=== PATIENT | female | born 1970 | race Caucasian/White ===

== ENCOUNTER 2020-12-29 16:00 | Outpatient (RCR) | payer OTHER, SELFPAY ==
--- NOTE | 2020-12-14 10:03 | HP.PTEVAL_ITS ---
Patient's Visit Information AURA SMITH is a 50 year old F referred to Physical Therapy by AXEL HOYOS with a diagnosis of Right Insertional Achilles Tendonitis, Tear Right, Bursitis. Date of Evaluation: 12/14/20 Physical Therapist: Lou Gordillo DPT - Visit Plan Frequency: 2x /Week Duration: 4 Weeks Plan: Ultrasound- Gastroc/Solus Flexibility and Strength Caution of partial tear. IE HEP Given: Ankle ROM exercises, Gastroc Stretching (seated and standing) - Subjective Right Foot Pain-In August she was walking and then started to have pain. Thought it was her shoes- she had a purple line along the back of it. Solutions Analyst said bursitis and gave her a steroid pill that did not help. She has a lump back there which is swollen. She had and MRI which showed a tear towards the bottom of the tendon. Lots of swelling in the foot/ankle. Does ice a couple of times a week. Also does heat and stretching in the shower. Has been doing stretching exercises in the foot but she does have limited ROM. Most of the pain is in the heel and goes up the back and into gastroc into the knee. Worst: 10 Agg: everything. If in one position to long she has throbbing and burning pain. She can get 100 yards of walking then it becomes very painful. Best: 10 Eases: she tries but nothing really works- she uses lidocain to sleep. Sleep: wakes her up but she can go back to sleep after using Lidocain (roll on/spray). Occupation: production truck driver- currently working- getting in/out of the truck is hard. In/Out of the truck 10-15x-no climbing in trailers at this point. Does have neuroapthy in her feet- does have slight burning and tingling in the feet. Shoes: normally wears sketchers or slide ons- no orthotics in shoes- no lift in her shoes. PMHx: HTN, Fibro, She has had a spinal fusion Jul 2017. DM. Meds: Gabapentin, bidermosise, metformin, hydrocholorthiazide, lisinopril, amotryptolene, potassium, prilosec, asprin, collosterine. - Objective Posture: FH, RS, increased kyphosis- can correct but does not maintain- pt is overweight. Gait: antalgic- decreased stance on right LE with poor heel/toe pattern and slow yovani. Observation: lump on distal achilles. SLS: 5 sec then LOB reports pain. HR/TR: able with significant pain. Sit to Stand: pt uses arms to lift from chair. Stairs: asc/desc 8 recip with 2 HR with significant pull from HR. Palpation: tender along gastroc, achilles to the distal insertion is VERY tender, in the heel and plantar fascia- no pain with mobilization of the mid foot. ROM: DF: 10 degrees from neutral PF: 50 degrees, Inv: 30 degrees Ever: 10 degrees pain in all directions. Flex: Gastroc: severe, Solues: severe. Strength: Hip/Knee: 5/5, Ankle: 4/5 in available range with pain. Girth: Mets: 28 cm, Figure 8: 55, cm, Malls: 28cm - Goals Goal 1:: Patient will be I with HEP and progression Goal Time Frame: 4-6 Weeks Goal 2:: Patient will SLS for 15 sec without LOB Goal Time Frame: 4-6 Weeks Goal 3:: Patient will report less than 3/10 pain for 1 week Goal Time Frame: 4-6 Weeks Goal 4:: Patient will demo neutral DF in the Right ankle Goal Time Frame: 4-6 Weeks - Rehabilitation Potential Physical Therapy Diagnosis: Patient presents with hypomobility- she has decreased ROM, strength, flex and muscular endurance leading to abnormal gait pattern and decreased ability to peform ADL's. Rehabilitation Potential: Fair - Anticipated Interventions Patient/Client Instruction: Educate patient on: Benefits of Fitness Program Therapeutic Exercise to Include: Strength training, Endurance training, Balance training, Coordination, Agility training, Body mechanics, Postural training, Flexibilty training, Gait and locomotor training, Neuromotor development, Passive ROM, Active ROM, Dynamic Lumbar Stabilization, Scapular Strength/Stabilization For the Purpose of:: To improve muscle performance and motor function Manual Therapy Techniques to Include: Mobilization, Passive ROM, Soft tissue mobilization For the Purpose of:: To decrease swelling/inflammation, To improve nutrient delivery to tissue TENS: Yes Cryotherapy (ice pack, ice massage): Yes Thermo therapy (hot pack): Yes Ultrasound (thermal/non thermal): Yes For the Purpose of:: To decrease pain, To decrease swelling/inflammation Thank you for the opportunity to evaluate your patient. For Medicare and Medicare HMO plans, please review the plan of care and approve it. It will need to be FAXED BACK to us at [phone] for Medicare purposes. For Medicare only, by signing this I certify the plan of care. Please let me know if there are questions or concerns regarding this plan of care. Physician Signature:_ Date:
== END 2020-12-29 19:00 | disposition home or self-care (01) ==
LOC: PT 16:00
PROVIDERS: PCP Family Medicine
DX: S86.011D Strain of right Achilles tendon, subsequent encounter (principal); X58.XXXD Exposure to other specified factors, subsequent encounter; M89.9 Disorder of bone, unspecified
CPT/HCPCS: 97035; 97110; 97140; 97161

== ENCOUNTER 2021-11-03 16:11 | Emergency (ER) | payer OTHER, SELFPAY ==
[2021-11-03 16:12] VITALS: BP 142/79; PULSE 79; RESP 15; TEMP 36.3; O2SAT 98; BMI 53.7
--- NOTE | 2021-11-03 16:36 | ED.VIS.BACK ---
HPI History of Present Illness Chief Complaint: Back Narrative Narrative: Patient presents after a mechanical fall, she slipped on the ice while trying to unload a trailer, she fell backwards and hit her lower back. Initially she was able to get up and get to her truck but then she developed quite a bit of back pain, she needed help getting out of the truck and she came to the emergency department. No head injury no neck pain no other injuries. She has no paresthesias or pain radiating into her leg. No recent bowel or bladder dysfunction. No saddle anesthesia. PFSH PFSH Home Medications hydrocodone-acetaminophen 1 tab PO QHS PRN 3 Days #10 tab 11/03/21 [Rx Last Taken Unknown] tizanidine 4 mg PO QHS PRN #10 cap 11/03/21 [Rx Last Taken Unknown] Allergy/AdvReac Type Severity Reaction Status Date / Time morphine Allergy Anaphylaxis Verified 11/03/21 16:14 Social History Smoking Status: Former smoker ROS ROS ED ROS Narrative Past medical history: Reviewed, noncontributory Medications: Reviewed Social history: Noncontributory Review of systems: All systems negative except as indicated General: No fever, no head injury Eyes: No visual changes ENT: No facial injury Neck: No current neck pain, she does have a history of chronic neck pain but she just got injections and she tells me she has no neck pain currently Cardiovascular: No chest pain Respiratory: No shortness of breath or cough Gastrointestinal: No abdominal pain Genitourinary: No dysuria Musculoskeletal: Lumbar pain as in HPI Skin: No rash. No abrasions Neurological: No memory loss, confusion or any focal weakness Psych: No recent behavioral changes Hematologic: No easy bleeding or easy bruising EXAM Physical Exam Narrative Exam Narrative: Physical exam Vitals reviewed General: Does not appear in significant distress, no obvious injuries HEENT: No facial injury Head: No head injury Eyes: Extraocular movements intact Neck: No C-spine tenderness with full range of motion Heart: Regular rate normal pulses Chest wall: No chest wall pain Lungs clear lungs bilaterally with normal inspiration and expiration without tachypnea GI: Abdomen is soft and nontender there is no mass no guarding no abdominal wall contusion : Stable pelvis Musculoskeletal: Moves all extremities without any signs of trauma Back. There is mid lumbar tenderness to palpation, no step-offs. No contusions. Skin: No abrasions or laceration Neurological: Patient is alert and oriented with no focal deficits. Negative straight leg test. Normal strength and sensation of both lower extremities. Const Vital Signs: 11/03/21 16:12 Temperature 97.3 F L Temperature Source Temporal Pulse Rate 79 Respiratory Rate 15 Blood Pressure 142/79 H Blood Pressure Mean 100 Pulse Ox 98 Oxygen Delivery Method Room Air MDM MDM MDM Narrative Medical decision making narrative: Patient has a normal x-ray she is given analgesia and she improved I will discharge her in stable condition with reassurance and muscle relaxants for home. Radiography Diagnostic Testing: Clinical Impression(s) from Imaging Studies Lumbar Spine X-Ray 11/03/21 16:45 IMPRESSION: No compression fracture. Electronically Signed: Ender Duong MD ([place]) at 17:21 EST Reading Location ID and State: [facility] / [place] , Service support , X-ray read by me and radiologist does not show any fracture. Discharge Plan Triage Chief Complaint: Back ED Provider: Walker Logan Dx/Rx/DC Orders Clinical Impression: Fall, Lumbar contusion Instructions: Back Safety: Lifting Prescriptions: New tizanidine 4 mg capsule 4 mg PO QHS PRN (Reason: muscle spasticity) Qty: 10 RF: 0 hydrocodone-acetaminophen 5-325 mg tablet 1 tab PO QHS PRN (Reason: pain) 3 Days Qty: 10 RF: 0 Primary Care Provider: Penny Mckeon Referrals: Penny Mckeon DO [Primary Care Provider] - 2 Days Disposition Disposition: Home, Self Care
--- NOTE | 2021-11-03 16:45 | RAD_ITS ---
STUDY: X-RAY - LUMBAR SPINE REASON FOR EXAM: Female, 51 years old. PT STATES SHE SLIPPED ON THE ICE INJURYING HER BACK TECHNIQUE: 3 view(s) of the lumbar spine were obtained. COMPARISON: None FINDINGS: Normal lumbar lordosis. There is no substantial scoliosis. There is a normal alignment of the vertebrae. There is multilevel endplate spondylosis of the lumbar vertebrae. There is multi-level degenerative disc disease with multi-level disc space narrowing. There is no demonstrated fracture. Multilevel facet arthropathy. There is atherosclerotic calcification of the abdominal aorta without a demonstrated aneurysm. There are degenerative changes of the right hip. RAD/Lumbar Spine 2 or 3 Views IMPRESSION: No compression fracture. Electronically Signed: Ender Duong MD ([place]) at 17:21 EST ,
[2021-11-03] MEDS: oxyCODONE 5 MG Tablet PO (17:06)
[2021-11-03] MEDS: Orphenadrine 60 MG/2 ML Ampul IM (17:06)
[2021-11-03] MEDS: HYDROmorphone 1 MG/ML Syringe IM (18:50)
[2021-11-03 19:26] VITALS: BP 117/71; PULSE 77; O2SAT 96
== END 2021-11-03 19:27 | disposition home or self-care (01) ==
PROVIDERS: Emergency Provider Emergency Medicine; PCP Family Medicine; Visit Provider Emergency Medicine
DX: S30.0XXA Contusion of lower back and pelvis, initial encounter (principal); W00.0XXA Fall on same level due to ice and snow, initial encounter; Z87.891 Personal history of nicotine dependence
CPT/HCPCS: 72100; 96372; 99283

== ENCOUNTER 2021-12-13 07:00 | Outpatient (RCR) | payer OTHER, SELFPAY ==
--- NOTE | 2021-11-14 07:56 | HP.PTEVAL ---
Patient's Visit Information AURA SMITH is a 51 year old F referred to Physical Therapy by ELVIS Almonte with a diagnosis of Lumbar Strain. Date of Evaluation: 11/14/21 Physical Therapist: Lou Gordillo DPT - Visit Plan Frequency: 2-3x /Week Duration: 3 Weeks Plan: Focus on gentle movement- LE and core strength/stabilization- modality of US and E-stim - Subjective Fell on the ice Nov 03- landed flat on her back and bounced. A few months ago she hurt her left knee- so she had to pull herself up- felt a twinge in her back but no neck pain. She climbed into the truck- had to get out to check on something. She then got back in the truck and could not get out of the truck again. Called the company and put the seat heater on. Drove back to [employer] about 60 miles- then her took her to [place] ED. They took x-rays and gave her a muscle relaxer and sent her home. She went back to work yesterday with restrictions to get out of the truck every hour. She has had a C6-7 spinal fusion 2016 and does pain mgtm for it (injections thoracic and cervical). She reports no pain in her neck. Pain in the lumbar spine- at the belt line and radiates to- she is okay then it spasms. Sometimes she can't sit and sometimes she can't stand. She feels the pain is getting worse. Worst: 810 Agg: work, everything Eases: laying on her side in bed. Best: 10. Describes the pain as dull achy with mild cramps- when it intensified its tense and grabby. She does have some radiation into the right hip. Right hip and back x-rays were all negative. Does have N/T in the toes due to neuropathy- no changes since the fall. She has had issues with bowel or bladder in the past but does feel its getting worse. Sleep: not disturbed due to Melatonin and Ambien. 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 PMHx/Meds: no changes since [facility] clinic visit. - Objective Posture: poor- FH, RS- can correct to neutral with verbal and tactile cues but is unable to maintain and reports significant low back pain. Gait: poor posture- slow yovani and requires 60 seconds to obtain upright posture prior to first steps. HR/TR: unable standing due to pain but can perform seated. Sensation: diminished to bilateral LE due to previous injuries. ROM: Lumbar: flexion: hands to knees, Extn: neutral, SB: WFL bilateral Rot: diminished by 50% bilaterally- all with significant pains. Hip: bilateral WFL- limited by adipose tissue. Strength: Core: poor unable to crunch or perform prone superman, Hip: Left: 4/5, Right: 4+/5, Knee: 5/5, Ankle:5/5. Flex: HS: severe, Gastroc: severe- pain with left hamstring testing. Palpation: tender along paraspinals of the lumbar spine- significant tenderness with PA glides in L3-S1. Hard to get accurate measurements today due to pain levels - Special Tests L/S Slump test left side: Positive L/S Slump test right side: Positive L/S Left Straight Leg Raise: Positive L/S Right Straight Leg Raise: Positive - Balance/Special Test Scores Oswestry Low Back Score: 31 - Goals Goal 1:: Patient will be I with HEP and progression Goal Time Frame: 4-6 Weeks Goal 2:: Patient will ambulate >300 feet with a normalized gait pattern Goal Time Frame: 4-6 Weeks Goal 3:: Patient will maintain proper posture t/o tx session to demo increased core s/s Goal 4:: Patient will subjectively report 80% better Goal Time Frame: 4-6 Weeks - Rehabilitation Potential Physical Therapy Diagnosis: Patient presents with hypomobility- she has decreased pain free lumbar ROM, LE and core strength/stabilization, flex and muscular endurance leading to poor posture and increased pain with ADL's/ Rehabilitation Potential: Fair - Anticipated Interventions Patient/Client Instruction: Educate patient on: Benefits of Fitness Program Therapeutic Exercise to Include: Strength training, Endurance training, Balance training, Coordination, Agility training, Body mechanics, Postural training, Flexibilty training, Gait and locomotor training, Neuromotor development, In an aquatic setting, Dynamic Lumbar Stabilization, Scapular Strength/Stabilization For the Purpose of:: To improve muscle performance and motor function TENS: Yes Cryotherapy (ice pack, ice massage): Yes Thermo therapy (hot pack): Yes Thank you for the opportunity to evaluate your patient. For Medicare and Medicare HMO plans, please review the plan of care and approve it. It will need to be FAXED BACK to us at [phone] for Medicare purposes. For Medicare only, by signing this I certify the plan of care. Please let me know if there are questions or concerns regarding this plan of care. Physician Signature: Date:
--- NOTE | 2021-12-13 07:19 | HP.PTDCSUM ---
It has been my pleasure to treat AURA SMITH referred by ELVIS Almonte, with the diagnosis of Lumbar Strain for a total of 11 visit(s). Discharge Date: 12/13/21 Please see the following information for a summary of their discharge status. Subjective: Pt. is here today for her re assessment today. She reports that her back is doing much better. She does have some soreness, but she reprots not expecting to be fully better. She has been doing pain management in her neck, but previously. LB Pain Intensity (Out of 10): 2 R hip Pain Intensity (Out of 10): 2 % Improvement: 80 Objective/Function: ROM: Pt. has good ROM, slight increase in R hip pain/lumbar spine issues. It loosens up as I keep doing more.. MMT: 5/5 throughout. Core: fair. She reports having an I pool program for home. She does some access to pool program for home and community. gait: 350' with normal gait pattern, mild increase in symptoms 3/10 pain in R side of lumbar spine. Pt. feels like she would be able to get back to all work activities without issues. Pt. has no N/T in BLEs. She does have some soreness with prolong sitting or standing, reduces with changes in position. Goal 1:: Patient will be I with HEP and progression Goal Progress: Goal Met Goal 2:: Patient will ambulate >300 feet with a normalized gait pattern Goal Progress: Goal Met Goal 3:: Patient will maintain proper posture t/o tx session to demo increased core s/s Goal Progress: Goal Met Goal 4:: Patient will subjectively report 80% better Goal Progress: Goal Met Plan: Pt. to be DC back to physician at this point in time. Discharge Comments: Pt. did well with Aquatic therapy for core stability and activity tolerance. She did well with deep hang traction. She is currently I with HEP. She reports being 80% better overall. She has improved strength and gait. She does have some slight soreness, but appears to be able to maintain at a low level and is tolerating activities well. She will be DC back to physician at this point in time. If there are questions or concerns regarding this patient's physical therapy, please feel free to call me at [phone]. Thank you for the referral of this patient. Sincerely, Ruben Adams Sipos, DPT Balance/Gait/Functional tests - Balance/Special Test Scores Oswestry Low Back Score: 14
== END 2021-12-13 08:42 | disposition home or self-care (01) ==
LOC: PT 07:00
PROVIDERS: PCP Family Medicine; Referring Provider Physician Assistant; Visit Provider Physician Assistant
DX: S30.0XXD Contusion of lower back and pelvis, subsequent encounter (principal)
CPT/HCPCS: 97014; 97113; 97162; 97164; G0283

== ENCOUNTER 2024-11-10 09:30 | Outpatient (RCR) | payer BC, OTHER, SELFPAY ==
--- NOTE | 2024-10-14 12:02 | HP.PTEVAL ---
Patient's Visit Information Visit Information Visit Information: AURA SMITH is a 54 year old F referred to Physical Therapy by ELVIS GOVEA with a diagnosis of L quad and patellar tendinitis. Date of Evaluation: 10/08/24 Physical Therapist: Ruben Altamirano DPT Visit Plan Frequency: 2x /Week Duration: 6 Weeks Plan: 1 day in pool and 1 on land. Pt. to work on LE strengthening and ROM in aquatic setting DN, ROM while on land PT. Subjective Subjective: Pt. is here today for her initial evaluation with diagnosis of L quad and patellar tendinitis. Pt. reports having pain for a few months now. Pt. reports no mech of injury. She is now having trouble with lifting her leg, bending and straightening. Pt. denies N/T in either LE. 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 Pt. is sleeping okay, but when she gets up is stiff and sore. Pt. is hopeful to reduce symptoms in order to get back to all recreational and daily activities without limitations. Pain L knee: Pain Intensity (Out of 10): 4 Pain Intensity Range: 2 and 8 Objective Objective: POSTURE: Pt. has increased B knee valgus, slight lack of L TKE. PALPATION: Pt. has increased pain with palpation of patellar and quad tendon. No medial joint line pain. NEURO: pt. has normal sensation and DTR of BLEs. ROM: L knee: 0-10-126deg. Pt. reports high levels of pain with attempts of straightening, but was able to increase her knee extension in stance. MMT: LLE: knee: ext 8# increase nW, flexion 13# NE RLE: knee: ext 22.9#, flexion 19.3# GAIT: Marked antalgic pattern noted during L stance phase. Pt. reports no pain with swing phase of gait. STAIRS: step to pattern, increase NW with attempts to load LLE. Needs B HR to complete. Balance/Special Test Scores Lower Extremity Functional Score: 20 Goals Goal 1:: LTG: Pt. to be I with HEP. Goal Time Frame: 6-8 Weeks Goal 2:: STG: Pt. to have increased L knee ROM to 0-0-125deg. allowing for increased tolerance to all mobility. Goal 3:: LTG: Pt. to have symmetrical strength between BLEs without increase in symptoms. Goal Time Frame: 4-6 Weeks Goal 4:: LTG: pt. to negotiate 1 flight of stairs with 1 HR with reciprocal pattern without increase in symptoms. Goal Time Frame: 4-6 Weeks Rehabilitation Potential Physical Therapy Diagnosis: Pt. has signs and symptoms patellar tendinitis. Pt. has marked hypomobility, weakness and difficulty with walking. Pt. would benefit from PT to address the above limitations progressing back to all work and recreational activities. Rehabilitation Potential: Good Anticipated Interventions Patient/Client Instruction: Educate patient on: Condition, Plan of Care, Risk Factors and Benefits of Fitness Program For the Purpose of:: To foster healthy habits, To improve decision making, To facilitate caregiver knowledge, To improve self management, To prevent re-injury and To improve ability to perform tasks related to life management Therapeutic Exercise to Include: Strength training, Power training, Postural training, Flexibilty training, Passive ROM and Active ROM For the Purpose of:: To decrease pain, To increase ROM, To improve nutrient delivery to tissue and To increase oxygenation perfusion Manual Therapy Techniques to Include: Mobilization, Functional dry needling and Soft tissue mobilization For the Purpose of:: To decrease pain, To increase ROM, To improve nutrient delivery to tissue, To increase oxygenation perfusion and To improve muscle performance and motor function Text: Thank you for the opportunity to evaluate your patient. For Medicare and Medicare HMO plans, please review the plan of care and approve it. It will need to be FAXED BACK to us at [phone] for Medicare purposes. For Medicare only, by signing this I certify the plan of care. Please let me know if there are questions or concerns regarding this plan of care. Physician Signature: Date:
== END 2024-11-10 19:00 | disposition home or self-care (01) ==
LOC: PT 09:30
PROVIDERS: PCP Family Medicine; Referring Provider Physician Assistant Medical; Visit Provider Physician Assistant Medical
DX: M76.52 Patellar tendinitis, left knee (principal); M76.899 Other specified enthesopathies of unspecified lower limb, excluding foot; M79.7 Fibromyalgia; M17.12 Unilateral primary osteoarthritis, left knee
CPT/HCPCS: 97110; 97113; 97161